=== PATIENT | female | born 1950 | race African-American/Black ===

== ENCOUNTER 2019-03-17 19:24 | Emergency (ER) | payer OTHER, SELFPAY ==
[2019-03-17 19:33] VITALS: BP 159/87; PULSE 81; RESP 20; TEMP 36.4; O2SAT 96
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
[2019-03-17] MEDS: ONDANSETRON 4 MG ODT SL (21:01)
[2019-03-17] MEDS: IBUPROFEN 400 MG TABLET 800 MG PO (21:56)
[2019-03-17 22:00] VITALS: BP 162/79; PULSE 71; RESP 16; O2SAT 96
== END 2019-03-17 22:22 | disposition home or self-care (01) ==
PROVIDERS: Emergency Provider Emergency Medicine; PCP Internal Medicine
DX: S16.1XXA Strain of muscle, fascia and tendon at neck level, initial encounter (principal); R11.0 Nausea; V43.52XA Car driver injured in collision with other type car in traffic accident, initial encounter
CPT/HCPCS: 99282; 99283

== ENCOUNTER → 2019-06-16 14:02 | Outpatient (CLI) | payer OTHER, SELFPAY ==
--- NOTE | 2019-06-16 | DI.RAD.S_ITS ---
PROCEDURE: XR CERVICAL SPINE 2V OR 3V INDICATIONS: Spondylosis without myelopathy or radiculopathy, cervical re TECHNIQUE: 3 view(s) of the cervical spine were acquired. COMPARISON: None. FINDINGS: Bones: No fractures or dislocations to the T1 level. The lateral masses of C1 appear intact on the odontoid view. No suspicious bony lesions. Note is made of moderately severe degenerative disc disease from C3 inferiorly along the cervical line with facet osteoarthritis superimposed, greater on the left than the right. Soft tissues: No prevertebral soft tissue swelling. IMPRESSION: The degree of degenerative disc disease and facet osteoarthritis is prominent and likely related to spinal and foraminal stenosis bilaterally, left greater than right. Dictated by: Karthikeyan Chairez M.D. on 06/16/2019 at 16:16 Approved by: Karthikeyan Chairez M.D. on 06/16/2019 at 16:16
--- NOTE | 2019-06-16 | DI.RAD.S_ITS ---
PROCEDURE: XR SHOULDER RT MIN 2V INDICATIONS: Spondylosis without myelopathy or radiculopathy, cervical re TECHNIQUE: 3 views of the shoulder were acquired. COMPARISON: None. FINDINGS: Bones: No fractures or dislocations but there appears to have been prior acromioplasty of the right shoulder. No suspicious bony lesions. Visualized ribs appear intact. Soft tissues: No suspicious soft tissue calcifications. IMPRESSION: Presumed prior acromioplasty right shoulder. Dictated by: Karthikeyan Chairez M.D. on 06/16/2019 at 16:16 Approved by: Karthikeyan Chairez M.D. on 06/16/2019 at 16:17
== END ==
PROVIDERS: PCP Internal Medicine; Visit Provider Internal Medicine
DX: M47.812 Spondylosis without myelopathy or radiculopathy, cervical region (principal); M50.31 Other cervical disc degeneration, high cervical region
CPT/HCPCS: 72040; 73030

== ENCOUNTER → 2022-02-02 15:31 | Outpatient (CLI) | payer MEDICARE, OTHER, SELFPAY ==
[2022-02-02 16:28] LABS: Alanine Aminotransferase 13 IU/L (<35); Albumin 4.2 g/dL (3.5-5.0); Alkaline Phosphatase 86 U/L (38-126); Aspartate Aminotransferase 18 IU/L (14-36); BUN Creatinine Ratio 14.8 (6-22); Bilirubin Total 0.4 mg/dL (0.2-1.3); Blood Urea Nitrogen 12 mg/dL (7-17); Carbon Dioxide 35 mmol/L (22-32); Chloride 97 mmol/L (98-107); Estimated Glomerular Filt Rate > 60 mL/min (>60); Globulin 4.2 g/dL (1.7-4.1); Glucose 175 mg/dL (80-110); HEMOLYSIS < 15 (0-50); Potassium 3.6 mmol/L (3.4-5.1); Sodium 139 mmol/L (137-145); Total Protein 8.4 g/dL (6.3-8.2)
[2022-02-02 17:08] LABS: Thyroid Stimulating Hormone 2.38 uIU/mL (0.47-4.68)
[2022-02-02 19:05] LABS: Creatinine Urine Random 71.4 mg/dL; Protein (Total) Urine Random 15 mg/dL (0-12); Protein Creatinine Ratio Urine 0.21 GRAM/24H
== END ==
PROVIDERS: PCP Internal Medicine; Referring Provider Internal Medicine Cardiovascular Disease; Visit Provider Internal Medicine Cardiovascular Disease
DX: I10 Essential (primary) hypertension (principal); R60.9 Edema, unspecified
CPT/HCPCS: 36415; 80053; 82570; 84156; 84443

== ENCOUNTER → 2022-02-03 09:33 | Outpatient (CLI) | payer MEDICARE, OTHER, SELFPAY ==
--- NOTE | 2022-02-03 09:37 | DI.US.S_ITS ---
PROCEDURE: US PERIPH VENOUS LOW EXTREM BI INDICATIONS: HYPERTENSION AND EDEMA TECHNIQUE: Real-time imaging, as well as color and pulse Doppler interrogation, were performed of the deep veins of both legs from the inguinal ligament to the popliteal fossa. COMPARISON: None. FINDINGS: Right: The common femoral, femoral and popliteal veins are normally compressible, and free of intraluminal thrombus. Color and pulse Doppler demonstrate normal phasic intravascular flow. There is normal augmentation response to distal compression maneuver. Left: The common femoral, femoral and popliteal veins are normally compressible, and free of intraluminal thrombus. Color and pulse Doppler demonstrate normal phasic intravascular flow. There is normal augmentation response to distal compression maneuver. There is a 4.9 x 1.1 by 2.0 cm complex fluid collection in the left popliteal fossa. IMPRESSION: 1. No deep vein thrombosis of the bilateral lower extremities. 2. Left Gomez's cyst. Dictated by: Jennifer Barnes M.D. on 02/03/2022 at 11:41 Approved by: Jennifer Barnes M.D. on 02/03/2022 at 11:49
--- NOTE | 2022-02-03 09:38 | DI.CT.S_ITS ---
PROCEDURE: CT ABDOMEN PELVIS W CON INDICATIONS: HYPERTENSION AND EDEMA TECHNIQUE: After the administration of oral and IV contrast, axial sections were acquired from the lung bases to the pubic symphysis. Coronal and sagittal reformats were performed. For radiation dose reduction, the following was used: automated exposure control, adjustment of mA and/or kV according to patient size. COMPARISON: None. FINDINGS: Image quality: Excellent. Lung bases: Unremarkable. Heart: No significant findings. ABDOMEN: Liver: Unremarkable. Gallbladder: Unremarkable. Biliary ducts: Unremarkable. Pancreas: Unremarkable. Spleen: Unremarkable. Adrenal Glands: Unremarkable. Kidneys and Ureters: Multiple bilateral renal cysts are seen measures up to 4.4 x 3.6 cm in size in lateral cortex of midpole left kidney. No hydronephrosis or nephrolithiasis. Stomach and Bowel: Stomach, small bowel loops, and colon are unremarkable. Appendix is visualized and is within normal limits. No abscess collection. Peritoneum: No abnormal intraperitoneal fluid. No free air. Ventral Wall: No hernia. Abdominal Nodes: No retroperitoneal or mesenteric adenopathy by size criteria. Vessels: Aorta and inferior vena cava are normal in size. Normal contrast opacification of IVC, bilateral femoral veins and iliac veins are seen without intraluminal filling defect or gross external compression. PELVIS: Pelvic Organs: Bulky appearing uterus with calcified uterine fibroids near fundus is seen. No gross abnormality is seen in bilateral adnexa. Bladder: Unremarkable. Pelvic Nodes: No enlarged lymph nodes. Miscellaneous: No inguinal hernias are seen. Bones: No suspicious bony lesion. No acute vertebral body compression fracture. Degenerative disc disease throughout lumbar spine is seen. IMPRESSION: 1. Pelvic veins and IVC are fairly well opacified without evidence of thrombosis or external mass compression. 2. No acute inflammatory process is seen in abdomen or pelvis. No free fluid or free air. 3. Bilateral renal cysts as above. No nephrolithiasis or hydronephrosis. 4. Bulky appearing uterus with uterine fibroids. Dictated by: Johny Noonan M.D. on 02/03/2022 at 13:36 Approved by: Johny Noonan M.D. on 02/03/2022 at 13:45
== END ==
PROVIDERS: PCP Internal Medicine; Referring Provider Internal Medicine Cardiovascular Disease; Visit Provider Internal Medicine Cardiovascular Disease
DX: I10 Essential (primary) hypertension (principal); R60.9 Edema, unspecified; Q61.02 Congenital multiple renal cysts; M71.22 Synovial cyst of popliteal space [Baker], left knee
CPT/HCPCS: 74177; 93970; Q9967

== ENCOUNTER → 2024-01-08 10:00 | Outpatient (CLI) | payer MEDICARE, OTHER, SELFPAY ==
--- NOTE | 2024-01-08 | DI.RAD.S_ITS ---
PROCEDURE: FL JOINT INJECTION MEDIUM RT INDICATIONS: DEGENERATIVE JOINT DISEASE OF RIGHT GLENOHUMERAL JOINT COMPARISON: None. TECHNIQUE: The indications, alternatives, benefits, risks, and complications of the procedure were explained to the patient. Written informed consent was obtained and placed in the chart. The patient was placed in an appropriate position on the fluoroscopy table, and a site was chosen for percutaneous access under fluoroscopic guidance. The site was prepped and draped in a sterile fashion. Local anesthetic was administered using a 1% lidocaine solution. A hypodermic or spinal needle was then used to access the symptomatic joint. Intra-articular location of the needle tip was confirmed by injecting a small amount of contrast, followed by steroid administration. The needle was then withdrawn, and a bandage applied to the puncture site. FINDINGS: Joint injected: Right Medications injected: With 10 mL of 40 mg/mL Kenalog and 0.5% Ropivacaine mixture. Patient's pain before injection: 6 out of 10. Patient's pain after injection: 4 out of 10. Complications: None. IMPRESSION: Successful fluoroscopically guided administration of steroid and anaesthetic solution into the right joint. Dictated by: Vern French M.D. on 01/08/2024 at 14:47 Approved by: Vern French M.D. on 01/08/2024 at 14:50
[2024-01-08] MEDS: LIDOCAINE 1% 20 ML INJ (10:44)
[2024-01-08] MEDS: ROPIVACAINE 0.5% PF 5 MG/ML 20ML VIAL 20 ML INJ (10:45)
[2024-01-08] MEDS: TRIAMCINOLONE 40 MG/ML VIAL INTRA-ARTI (10:45)
== END ==
PROVIDERS: PCP Internal Medicine; Referring Provider Physician Assistant Surgical; Visit Provider Physician Assistant Surgical
DX: M19.011 Primary osteoarthritis, right shoulder (principal)
CPT/HCPCS: 20605; 77002; Q9967

== ENCOUNTER → 2024-02-26 09:52 | Outpatient (CLI) | payer MEDICARE, OTHER, SELFPAY ==
--- NOTE | 2024-02-26 09:54 | DI.NM.S_ITS ---
PROCEDURE: NM THANH PERF SPECT R&S PHARM Rest and pharmacological stress myocardial perfusion SPECT with gated imaging and ejection fraction RADIOPHARMACEUTICAL: 11.4 mCi Tc-99m tetrafosmin IV at rest and 25.7 mCi Tc-99m tetrafosmin IV at peak effect of pharmacological stress. A [id number] was performed. INDICATIONS: ELIZABETH TECHNIQUE: Radiopharmaceutical was injected at peak stress test, and also at rest. SPECT images were obtained. SPECT myocardial perfusion images were displayed in short axis, horizontal long axis, and vertical long axis views. Gated images were reviewed using Virtualtwo software. COMPARISON: None. CARDIAC STRESS: A pharmacologic stress test was performed under the supervision of an attending staff, using an infusion of regadenoson 0.4 mg IV. Hemodynamic data: There is normal blood pressure and heart rate response to pharmacologic stress. Symptoms: The patient denied anginal chest pain. EKG: No diagnostic changes of ischemia; no ectopy. FINDINGS: Raw data: There is good myocardial uptake of radiotracer. No significant motion artifacts. Qlxs-[id number] ratio is 0.3 to (normal is less than 0.38 for tetrafosmin tracer). Left ventricle function: Gated images demonstrate normal left ventricular wall thickening. No segmental wall motion abnormalities. No transient ischemic dilation; TID is 0.88 (normal less than 1.3). Left ventricle resting end diastolic volume is 91 mL. Left ventricle stress ejection fraction is 69%; normal range is above 45%. Myocardial perfusion: There is normal distribution of activity in the right and left ventricular myocardium. No fixed or reversible perfusion defects. IMPRESSION: Low risk study. No evidence of pharmacologic induced ischemia or scar. Normal LV size and function. Dictated by: Loren Johnson D.O. on 02/26/2024 at 16:22 Approved by: Loren Johnson D.O. on 02/26/2024 at 16:24
[2024-02-26 12:04] LABS: Hematocrit 37.2 % (36-46); Hemoglobin 12.4 g/dL (12.0-16.0); Mean Corpuscular HGB Conc 33.4 % (30-36); Mean Corpuscular Hemoglobin 30.7 PG (26-34); Mean Corpuscular Volume 91.8 fL (80-100); Platelet Count 205 X10^3/uL (150-400); Red Blood Cell Count 4.05 X10^6/uL (4.0-5.2); Red Cell Distribution Width 14.3 % (11.6-14.8); White Blood Cell Count 8.7 X10^3/uL (4.5-11.0)
[2024-02-26 13:27] LABS: BUN Creatinine Ratio 22.1 (6-22); Blood Urea Nitrogen 19 mg/dL (7-17); Calcium 9.1 mg/dL (8.4-10.2); Carbon Dioxide 27 mmol/L (22-32); Chloride 101 mmol/L (98-107); Estimated Glomerular Filt Rate > 60 mL/min (>60); Glucose 139 mg/dL (80-110); HEMOLYSIS < 15 (0-50); Potassium 4.4 mmol/L (3.4-5.1); Sodium 138 mmol/L (137-145)
[2024-02-26 13:37] LABS: NT-proBNP (BNP-Adult 18+) 263 pg/mL (<125)
== END ==
LOC: NUCM 09:53
PROVIDERS: PCP Internal Medicine; Referring Provider Internal Medicine Cardiovascular Disease; Visit Provider Internal Medicine Cardiovascular Disease
DX: R06.09 Other forms of dyspnea (principal)
CPT/HCPCS: 36415; 78452; 80048; 83880; 85027; 93017; A9502; J2785

== ENCOUNTER → 2024-11-11 14:23 | Outpatient (CLI) | payer MEDICARE, OTHER, SELFPAY ==
[2024-11-11 15:38] LABS: Add Manual Diff / Slide Review NO; Basophils Absolute Auto 0 /uL (0-100); Basophils Percent Auto 0.4 % (0-2); Eosinophils Absolute Auto 200 /uL (0-450); Eosinophils Percent Auto 2.5 % (2-4); Hemoglobin 11.9 g/dL (12.0-16.0); Lymphocytes Absolute Auto 2500 /uL (1100-4500); Lymphocytes Percent Auto 36.3 % (25-40); Mean Corpuscular HGB Conc 33.2 % (30-36); Mean Corpuscular Hemoglobin 30.7 PG (26-34); Mean Corpuscular Volume 92.7 fL (80-100); Monocytes Absolute Auto 800 /uL (0-900); Monocytes Percent Auto 11.4 % (3-14); Neutrophils Absolute Auto 3300 /uL (1500-7000); Neutrophils Percent Auto 49.4 % (50-75); Platelet Count 215 X10^3/uL (150-400); Red Blood Cell Count 3.88 X10^6/uL (4.0-5.2); White Blood Cell Count 6.8 X10^3/uL (4.5-11.0)
[2024-11-11 15:59] LABS: BUN Creatinine Ratio 13.8 (6-22); Blood Urea Nitrogen 12 mg/dL (7-17); Calcium 9.1 mg/dL (8.4-10.2); Carbon Dioxide 29 mmol/L (22-32); Chloride 100 mmol/L (98-107); Estimated Glomerular Filt Rate > 60 mL/min (>60); Glucose 136 mg/dL (70-99); HEMOLYSIS < 15 (0-50); Sodium 138 mmol/L (137-145)
[2024-11-11 16:09] LABS: NT-proBNP (BNP-Adult 18+) 561 pg/mL (<125)
== END ==
PROVIDERS: PCP Internal Medicine; Referring Provider Internal Medicine; Visit Provider Internal Medicine Cardiovascular Disease
DX: R06.09 Other forms of dyspnea (principal)
CPT/HCPCS: 36415; 80048; 83880; 85025

== ENCOUNTER → 2024-11-19 10:02 | Outpatient (CLI) | payer MEDICARE, OTHER, SELFPAY ==
--- NOTE | 2024-11-19 10:06 | DI.ECHO.S_ITS ---
[facility] : : [id number] : [place] [address] : : [id number] : : Phone: [phone] Echocardiogram Report + + :Name: ADOLFO DUNCAN Study Date: 11/19/2024 Height: 64 in : :[facility] ReadingLocation: Weight: 200 lb : : Gender: Female BSA: 2.0 m2 : :: 1950 Age: 74 yrs BP: 173/100 mmHg: :Reason For Study: PERICARDIAL EFFUSION : :Ordering Physician: ARIEL, : :CHON Performed By: Joce Rodarte : :Referring: CHON CHAUDHARI : + + Interpretation Summary 1) Mildly increased left ventricular thickness (concentric) with normal size, normal wall motion, and normal systolic function (EF 55-60%). 2) Normal right ventricular size and function. 3) No significant valvular abnormalities. 4) There is a small circumferential pericardial effusion noted. 5) Hypertension present during the study (BP 173/100mmHg). 6) No prior Echo available for comparison. Procedure: A two-dimensional transthoracic echocardiogram with color flow and Doppler was performed. The study quality was technically adequate. Comparison is made with the echocardiogram of 11/13/2023. The patient was in normal sinus rhythm during the exam. Left Ventricle: The left ventricle is normal in size. Left ventricular wall thickness is mildly increased. There is no ventricular septal defect visualized. The ejection fraction is estimated to be 55-60%. There are no focal wall motion abnormalities. Diastolic parameters suggest a relaxation abnormality of the left ventricle, consistent with probable normal filling pressures. Right Ventricle: The right ventricle grossly appears normal in size with probable normal systolic function. Atria: The left atrium is moderately dilated. Right atrial size is normal. There is no Doppler evidence for an interatrial shunt. Mitral Valve: The mitral valve leaflets appear normal. There is no evidence of stenosis, fluttering, or prolapse. There is mild mitral annular calcification. There is trace mitral regurgitation. Aortic Valve: The aortic valve is not well visualized. There is no aortic valve stenosis. No aortic regurgitation is present. Tricuspid Valve: The tricuspid valve leaflets are thin and pliable. There is trace tricuspid regurgitation. Pulmonary artery pressures cannot be estimated because of the lack of a measurable TR jet velocity. Pulmonic Valve: The pulmonic valve is not well visualized. There is no pulmonic valvular regurgitation. Great Vessels: The aortic root is normal size. The dimensions of the ascending aorta are normal. The pulmonary artery is normal size. The IVC is dilated (diameter is greater than 2.1 cm) yet it collapses greater than 50% with a sniff. This suggests a right atrial pressure of 8 mm Hg. Pericardium/ Pleura There is a small pericardial effusion noted. There is no pleural effusion. MMode/2D Measurements & Calculations LVIDd: 5.6 cm LVOT diam: 1.9 cm LVIDs: 3.7 cm Ao root diam: 3.5 cm FS: 33.4 % asc Aorta Diam: 3.4 cm EPSS: 1.1 cm IVSd: 1.4 cm LVPWd: 1.4 cm LV delgadillo. diameter/BSA (cm/m^2): 2.8 LV sys. diameter/BSA (cm/m^2): 1.9 LA A2 area: 22.1 cm2 RA long axis: 5.6 cm LA A4 area: 24.1 cm2 RA area: 14.2 cm2 LA length (vol): 5.7 cm RA vol: 30.6 ml LA vol: 78.6 ml RA : 15.7 ml/m2 LA vol index: 40.2 ml/m2 IVC diam: 2.2 cm RVD1 (basal): 3.2 cm Doppler Measurements & Calculations Ao V2 max: 140.5 cm/sec LVOT Max Devon: 97.6 cm/sec Ao V2 mean: 94.3 cm/sec LV V1 max P.8 mmHg Ao max P.9 mmHg LV V1 VTI: 23.5 cm Ao mean P.9 mmHg JASON(I,D): 2.4 cm2 Ao V2 VTI: 28.7 cm JASON(V,D): 2.1 cm2 sev ratio: 0.82 JASON indexed to BSA (cm^2/m^2): 1.2 MV E max devon: 65.4 cm/sec TR max devon: 268.0 cm/sec MV A max devon: 69.4 cm/sec TR max P.7 mmHg MV E/A: 0.94 PA V2 max: 84.8 cm/sec Med Peak E' Devon: 4.9 cm/sec PA V2 mean: 67.8 cm/sec E/E' med: 13.2 PA mean P.9 mmHg Lat Peak E' Devon: 5.7 cm/sec PA pr(Accel): 51.6 mmHg E/E' lat: 11.5 E/e' average: 12.4 MV dec time: 0.17 sec SV(LVOT): 69.6 ml Reading Physician:05:22 PM
== END ==
PROVIDERS: PCP Internal Medicine; Referring Provider Internal Medicine Cardiovascular Disease; Visit Provider Internal Medicine Cardiovascular Disease
DX: I34.81 Nonrheumatic mitral (valve) annulus calcification (principal); I31.39 Other pericardial effusion (noninflammatory)
CPT/HCPCS: 93306

== ENCOUNTER → 2025-05-13 15:57 | Outpatient (CLI) | payer MEDICARE, OTHER, SELFPAY ==
[2025-05-13 17:29] LABS: Hematocrit 35.5 % (36-46); Hemoglobin 12.0 g/dL (12.0-16.0); Mean Corpuscular HGB Conc 33.8 % (30-36); Mean Corpuscular Hemoglobin 30.7 PG (26-34); Mean Corpuscular Volume 90.7 fL (80-100); Platelet Count 232 X10^3/uL (150-400)
[2025-05-13 17:47] LABS: Blood Urea Nitrogen 26 mg/dL (7-17); Calcium 9.0 mg/dL (8.4-10.2); Carbon Dioxide 29 mmol/L (22-32); Chloride 102 mmol/L (98-107); Estimated Glomerular Filt Rate 57 mL/min (>60); Glucose 100 mg/dL (70-99); HEMOLYSIS < 15 (0-50); Potassium 4.4 mmol/L (3.4-5.1); Sodium 143 mmol/L (137-145)
== END ==
PROVIDERS: PCP Internal Medicine; Referring Provider Internal Medicine Cardiovascular Disease; Visit Provider Internal Medicine Cardiovascular Disease
DX: I50.32 Chronic diastolic (congestive) heart failure (principal)
CPT/HCPCS: 36415; 80048; 85027